=== PATIENT | male | born 2000 | race Two or more races ===

== ENCOUNTER 2025-01-05 13:04 | Emergency (ER) | payer MEDICAID, SELFPAY ==
[2025-01-05 14:11] VITALS: BP 150/85; PULSE 75; RESP 18; TEMP 37; O2SAT 98; BMI 34.9
--- NOTE | 2025-01-05 14:25 | XR_ITS ---
Examination: Duplex scan of the lower extremity, unilateral right Date and time of exam: January 05, 2025 1436 hrs. Indications: Right calf swelling and pain beginning 5 days ago post injury Technique: Duplex scan of the extremity veins using B-mode/grayscale imaging and Doppler spectral analysis and color flow Attention is directed to internal echogenicity, compression and augmentation involving these veins, color flow assessment, spectral analysis Findings: Major deep venous structures in the extremity demonstrate normal course and caliber. There is no evidence of deep vein thrombosis. Normal color flow and spectral analysis Impression: Negative for DVT..
--- NOTE | 2025-01-05 14:27 | EDNOTE_ITS ---
<Statement entered by Jacqueline Khan MD - 01/06/25 08:13> As co-signing physician, I was present and available for consult prn. I concur with the plan and care as documented by the midlevel provider. Lower Extremity Injury RME/HPI General Chief Complaint: Extremity Injury, Lower Stated Complaint: RIGHT CALF INJURY Time Seen by Provider: 01/05/25 14:08 Arrival date/time: 01/05/25 13:04 RME / HPI RME / HPI Narrative: 24-year-old male presents to the to the ER complaining of right calf pain which started initially after playing basketball and jumping about a week ago patient subsequently went to his family medicine clinic and was advised that he would be ordering physical therapy in the next few weeks and that he has a calf strain or sprain however patient has been resting his leg without improvement therefore he presents to the ER. Denies fever, numbness, tingling, weakness. Related Data Home Medications ?Medication ?Instructions ?Recorded ?Confirmed No Known Home Medications 05/20/1804/26 Allergies Allergy/AdvReac Type Severity Reaction Status Date / Time No Known Allergies Allergy Verified 01/05/25 13:06 Review of Systems Constitutional Constitutional: Reports system reviewed and no additional complaints, except as documented Musculoskeletal Musculoskeletal: Denies numbness Neurologic Neurologic: Denies numbness ED Exam Narrative Physical exam: Constitutional: Patient alert, oriented, in no acute distress. Head/Face: Normocephalic, atraumatic. Scalp atraumatic. No hematomas or step- offs. Face symmetric. No midface instability. No raccoon eyes bilaterally. No trivedi signs bilaterally. Eyes: Conjunctiva clear bilaterally. Sclera anicteric bilaterally. Pupils equal, round, and reactive to light bilaterally. Extraocular movements intact bilaterally. Neck: Trachea midline. Supple. No midline tenderness or step-offs. No nuchal rigidity. Upper Extremities: No gross deformities. No focal gross motor or sensory deficits bilaterally. Lower Extremities: Positive tenderness to palpation to right calf with minimal ecchymosis at the superior aspect. Full range of motion and strength 5 out of 5 for right hip knee and ankle aside from minimal diminished strength 4+ out of 5 secondary to pain with plantar flexion of right foot and minimal diminished ROM secondary to pain. Compartments soft. DP 2+ RRR. Neuro: Alert and oriented. Speech normal. CN II?XII grossly intact. GCS 15. Skin: Warm, dry, normal color. Course Course Course Narrative: Concern for gastrocnemius strain versus sprain. Golden squeeze negative and Achilles tendon remains intact. I considered an x-ray however given lack of bony tenderness we will defer after discussion with patient and shared decision making however he is requesting an ultrasound which we will perform to rule out DVT despite me having low suspicion. Additionally pt declined cam walker boots. No infectious etiology. Compartments remain soft and right lower extremity remains distally neurovascular intact. Plan for RICE therapy, NSAIDs, follow-up with PMD to continue to arrange for outpatient physical therapy ED dispo pending ultrasound however likely will adhere to pain plan as noted. Quality Measures none Orders Category Date Time Status US venous duplex LE RT Stat Exams 01/05/25 14:25 Completed Ketorolac Inj [Toradol Inj] Med 01/05/25 14:25 Discontinued 30 mg IM X1 ONE Reevaluation(s) Reevaluation #1: At the time of reassessment, the patient remains alert and oriented ?3 with GCS 15. Vitals are normal, pain is controlled, and the patient is tolerating oral intake without nausea or vomiting. The patient is agreeable to discharge and verbalizes understanding of the diagnosis, studies, treatment plan, medications (including side effects/precautions), and strict ER return precautions as discussed in the ED. All concerns were addressed, and the patient is comfortable with the plan. Vital Signs Vital signs: Vital Signs Temperature 98.6 F 01/05/25 14:11 Pulse Rate 75 01/05/25 14:11 Respiratory Rate 18 01/05/25 14:11 Blood Pressure 150/85 H 01/05/25 14:11 Pulse Oximetry (%) 98 01/05/25 14:11 Extremity Injury, Lower Patient data External records reviewed:: [facility] previous records Clinical information provided by:: patient Social determinants that could affect healthcare access:: other (specify) (No PCP available) Patient has the following chronic illnesses:: none How is presenting disease/condition affected by chronic disease/condition?: no chronic disease Evaluation data The following diagnostics were reviewed and interpreted by me:: radiology exam(s) Lab and/or radiology exams considered but not ordered:: Considered MRI however emergently not indicated and would not policy change clerk today Interpretation Summary: US negative Medications / Prescriptions Medications or Prescriptions considered but not ordered:: narcotics considered but side effects outweigh benefits, and pt declined Medication administrations:: Medication Administration History Discontinued Medications Ketorolac Tromethamine (Ketorolac Inj 30 Mg/Ml Vial) 30 mg IM X1 ONE Stop: 01/05/25 14:26 Last Admin: 01/05/25 15:13 Dose: 30 mg Documented By: DAISY see above Consultations Consultation(s) initiated? (list below): No Diagnosis Most likely diagnosis given after review of the tests above:: gastrocenmius strain Admission Indicated Admission indicated?: not indicated Admission Request Was there a request for admission?: No Disposition Plan Disposition Plan: Discharge Discharge Attestation Discharge Attestation: The patient and all family members were given an opportunity to ask questions and understood the discharge instructions. Discharge instructions specifically effects, indications for sooner follow up or return to the emergency department, and the expected course of current diagnosis. Patient condition: Stable Discharge Plan Plan Patient Disposition: HOME (Self Care) Prescriptions/Referrals Prescriptions/Med Rec: No Action No Known Home Medications Problem List Clinical Impression: Strain of calf muscle Impression comment: gastrocnemius strain, right Patient/Caregiver Discharge Instructions Other Activity Instructions:: weight bearing as tolerated Education Materials: Gastrocnemius Muscle Tear Additional Instructions: Follow up with your primary medical doctor and an orthopedic doctor within 48 hours. Return to the Emergency Room immediately for any new, worsening, continuing symptoms or any concerns at all. Return to the Emergency Room within 48 hours if you are unable to follow up with your primary medical doctor and orthopedic doctor within 48 Pam award info was that all of hours. Print Language: Kyrgyz Stand Alone Forms: Pam Award Info., Patient Portal Info Letter ANA/MARIO Supervising Physician RAUL Supervising Physician: Bill
[2025-01-05] MEDS: KETOROLAC INJ 30 MG/ML VIAL IM (15:13)
== END 2025-01-05 17:27 | disposition home or self-care (01) ==
PROVIDERS: Emergency Provider Emergency Medicine; PCP Family Medicine
DX: S86.111A Strain of other muscle(s) and tendon(s) of posterior muscle group at lower leg level, right leg, initial encounter (principal); X58.XXXA Exposure to other specified factors, initial encounter; Y93.67 Activity, basketball
CPT/HCPCS: 93971; 96372; 99283; J1885